=== PATIENT | female | born 1995 | race African-American/Black ===

== ENCOUNTER 2018-02-11 11:26 | Emergency (ER) | payer OTHER ==
[~2018-02-11] VITALS: Ht 157.5 cm; Wt 70.5 kg
[2018-02-11 11:30] VITALS: BP 101/71
--- NOTE | 2018-02-11 12:01 | PHYS DOC ---
Adult General Chief Complaint Chief Complaint: VAGINAL PROBLEM HPI HPI Patient is a 22 year old female with history of UTIs who presents today complaining of dysuria for 1 week. Patient denies any fever, nausea, vomiting, abdominal pain or back pain. She has not taken anything for her symptoms. Denies any chance she is , she states she has a Mirena. Review of Systems Review of Systems Constitutional: Denies fever or chills [] Eyes: Denies change in visual acuity, redness, or eye pain [] HENT: Denies nasal congestion or sore throat [] Respiratory: Denies cough or shortness of breath [] Cardiovascular: No additional information not addressed in HPI [] GI: Denies abdominal pain, nausea, vomiting, bloody stools or diarrhea [] : Reports dysuria, denies hematuria [] Musculoskeletal: Denies back pain or joint pain [] Integument: Denies rash or skin lesions [] Neurologic: Denies headache, focal weakness or sensory changes [] All other systems were reviewed and found to be within normal limits, except as documented in this note. Current Medications Current Medications Current Medications Medications (Trade) Dose Ordered Sig/Tiffany Start Time Stop Time Status Last Admin Dose Admin Azithromycin (Zithromax) 1,000 mg 1X ONCE 02/11/18 12:45 02/11/18 12:46 DC 02/11/18 13:00 1,000 MG Ceftriaxone Sodium (Rocephin Im) 250 mg 1X ONCE 02/11/18 12:45 02/11/18 12:46 DC 02/11/18 13:02 250 MG Lidocaine HCl (Xylocaine-Mpf 1% 2ml Vial) 2 ml 1X ONCE 02/11/18 13:00 02/11/18 13:01 DC 02/11/18 13:02 2 ML Metronidazole (Flagyl) 2,000 mg 1X ONCE 02/11/18 12:45 02/11/18 12:46 DC 02/11/18 13:01 2,000 MG Allergies Allergies Allergies Coded Allergies Type Severity Reaction Last Updated Verified No Known Drug Allergies 02/11/18 No Physical Exam Physical Exam Constitutional: Well developed, well nourished, no acute distress, non-toxic appearance. [] HENT: Normocephalic, atraumatic, bilateral external ears normal, oropharynx moist, no oral exudates, nose normal. [] Eyes: PERRLA, EOMI, conjunctiva normal, no discharge. [] Neck: Normal range of motion, no tenderness, supple, no stridor. [] Cardiovascular:Heart rate regular rhythm, no murmur [] Lungs & Thorax: Bilateral breath sounds clear to auscultation [] Abdomen: Bowel sounds normal, soft, no tenderness, no masses, no pulsatile masses. [] Skin: Warm, dry, no erythema, no rash. [] Back: No tenderness, no CVA tenderness. [] Extremities: No tenderness, no cyanosis, no clubbing, ROM intact, no edema. [] Neurologic: Alert and oriented X 3, normal motor function, normal sensory function, no focal deficits noted. [] Psychologic: Affect normal, judgement normal, mood normal. [] Current Patient Data Vital Signs Vital Signs Date Time Temp Pulse Resp B/P (MAP) Pulse Ox O2 Delivery O2 Flow Rate FiO2 02/11/18 11:30 99.0 73 16 101/71 (81) 99 Room Air 99.0 Lab Values Laboratory Tests Test 02/11/18 11:30 02/11/18 11:36 Urine Collection Type Unknown Urine Color Yellow Urine Clarity Clear Urine pH 6.5 Urine Specific [place] 1.015 Urine Protein Negative mg/dL (NEG-TRACE) Urine Glucose (UA) Negative mg/dL (NEG) Urine Ketones (Stick) Negative mg/dL (NEG) Urine Blood Trace (NEG) Urine Nitrite Negative (NEG) Urine Bilirubin Negative (NEG) Urine Urobilinogen Dipstick 0.2 mg/dL (0.2 mg/dL) Urine Leukocyte Esterase Small (NEG) Urine RBC 0 /HPF (0-2) Urine WBC 11-20 /HPF (0-4) Urine Squamous Epithelial Cells Few /LPF Urine Bacteria Moderate /HPF (0-FEW) Urine Mucus Slight /LPF Urine Trichomonas Present POC Urine HCG, Qualitative Hcg negative (Negative) EKG EKG [] Radiology/Procedures Radiology/Procedures [] Course & Med Decision Making Course & Med Decision Making Pertinent Labs and Imaging studies reviewed. (See chart for details) This is a 22-year-old female patient presented to the ED today with dysuria for one week. Urine analysis is positive for UTI as well as Trichomonas. Patient was given Flagyl Rocephin and azithromycin in the ED. STD education provided. Discharged with Bactrim for 3 days. Dragon Disclaimer Dragon Disclaimer This electronic medical record was generated, in whole or in part, using a voice recognition dictation system. Departure Departure Impression: Primary Impression: Urinary tract infection Additional Impression: Trichomonas vaginitis Disposition: HOME, SELF-CARE Condition: STABLE Referrals: NO PCP (PCP) follow up in one week with your doctor Patient Instructions: Trichomoniasis-Brief, Urinary Tract Infection Additional Instructions: Evaluated in the emergency room you were positive for urinary tract infection as well as Trichomonas. Trichomonas is a sexually transmitted disease. Contact all your sex partners, let them know you treated and ask them to seek treatment for STDs. Use protection at all times. Complete antibiotics for urinary tract infection. Scripts Sulfamethoxazole/Trimethoprim (BACTRIM DS TABLET) 1 Each Tablet 1 TAB PO BID, #6 TAB Prov: CHAR HO APRN 02/11/18 Problem Qualifiers Primary Impression: Urinary tract infection Urinary tract infection type: site unspecified Hematuria presence: without hematuria Qualified Codes: N39.0 - Urinary tract infection, site not specified CHAR HO APRN Feb 11, 2018 12:01
[2018-02-11 12:05] LABS: BILIRUBIN,URINE NEGATIVE (NEG); CLARITY,URINE CLEAR; COLOR,URINE YELLOW; NITRITE,URINE NEGATIVE (NEG); PH,URINE 6.5; PROTEIN,URINE NEGATIVE (NEG-TRACE); UROBILINOGEN,URINE 0.2 mg/dL (0.2 mg/dL)
[2018-02-11 12:22] LABS: SQUAMOUS EPITHELIAL CELL,UR FEW /LPF; TRICHOMONAS,URINE PRESENT
[2018-02-11 12:23] LABS: BACTERIA,URINE MODERATE /HPF (0-FEW); RBC,URINE 0 /HPF (0-2)
[2018-02-11] MEDS ORDERED: cefTRIAXone IM 250 MG VIAL IM ONE (12:45)
[2018-02-11] MEDS ORDERED: AZITHROMYCIN 250 MG TABLET. PO ONE (12:45)
[2018-02-11] MEDS ORDERED: metroNIDAZOLE 500 MG TABLET PO ONE (12:45)
[2018-02-11] MEDS ORDERED: LIDOCAINE 1% PF 2 ML VIAL. INJ ONE (13:00)
[2018-02-11] MEDS ORDERED: SULF1TAB24 PO (13:23)
== END 2018-02-11 13:32 | disposition home or self-care (01) ==
LOC: ER 11:26
DX: N39.0 Urinary tract infection, site not specified (principal); A59.01 Trichomonal vulvovaginitis
CPT/HCPCS: 81001; 81025; 87086; 96372; 99284; J0696; Q0144